=== PATIENT | male | born 1960 | race African-American/Black ===

== ENCOUNTER 2021-08-08 11:22 | Emergency (ER) | payer MEDICAID ==
[~2021-08-08] VITALS: Ht 175.3 cm; Wt 75.0 kg
[2021-08-08] MEDS ORDERED: CLOT15CR5 TP (11:45)
[2021-08-08 12:39] VITALS: BP 134/83
== END 2021-08-08 12:48 | disposition home or self-care (01) ==
LOC: ER 11:22
DX: B35.4 Tinea corporis (principal)
CPT/HCPCS: 99282